=== PATIENT | female | born 1995 | race African-American/Black ===

== ENCOUNTER 2019-04-29 23:05 | Emergency (ER) | payer MEDICAID ==
[~2019-04-29] VITALS: Ht 157.5 cm; Wt 86.0 kg
[2019-04-30 00:45] LABS: HEMATOCRIT. 35.8 % (36.0-48.0); HEMOGLOBIN. 12.3 g/dL (12.0-16.0); MEAN CORPUSCULAR HEMOGLOBIN 30.9 pg (28.0-32.0); MEAN CORPUSCULAR VOLUME 90.4 fL (81.0-99.0); MEAN PLATELET VOLUME 7.2 fl (7.4-10.4); PLATELET 400 x1000/uL (130-400); RED BLOOD CELL COUNT 3.96 mill/uL (4.2-5.4)
[2019-04-30 00:47] LABS: CHLORIDE 102 mEq/L (98-107)
[2019-04-30 00:52] LABS: PARTIAL THROMBOPLASTIN TIME 32.5 sec (23.4-31.0); PROTHROMBIN TIME 10.5 sec (9.6-11.0)
[2019-04-30 00:56] LABS: ETHANOL BLOOD < 10 mg/dL
[2019-04-30 01:03] LABS: HCG SCREEN NEGATIVE
[2019-04-30 02:16] LABS: CLARITY URINE CLEAR (CLEAR); COLOR URINE YELLOW (YELLOW); KETONES URINE NEGATIVE (NEGATIVE); LEUKOCYTE ESTERASE URINE 2+ (NEGATIVE); NITRITE URINE NEGATIVE (NEGATIVE); OCCULT BLOOD URINE TRACE (NEGATIVE); PH URINE 6.5 (4.5-8.0); PROTEIN URINE NEGATIVE (NEGATIVE)
[2019-04-30 02:22] LABS: *AMPHETAMINES SCREEN URINE NEGATIVE (NEGATIVE); *BARBITURATES SCREEN URINE NEGATIVE (NEGATIVE)
[2019-04-30 02:23] LABS: *BENZODIAZEPINES SCREEN URINE NEGATIVE (NEGATIVE); CANNABINOID URINE SCREEN NEGATIVE (NEGATIVE); METHADONE URINE SCREEN NEGATIVE (NEGATIVE); PHENCYCLIDINE URINE SCREEN NEGATIVE (NEGATIVE)
[2019-04-30 02:26] LABS: *COCAINE SCREEN URINE PRESUMTIVE POSITIVE (NEGATIVE)
[2019-04-30 02:30] VITALS: BP 122/81
[2019-04-30 03:59] LABS: PLATELET ESTIMATE NORMAL
[2019-05-03 09:10] LABS: OPIATES URINE SCREEN NEGATIVE (NEGATIVE)
== END 2019-04-30 02:35 | disposition home or self-care (01) ==
LOC: ER 23:05
DX: S40.022A Contusion of left upper arm, initial encounter (principal); S70.11XA Contusion of right thigh, initial encounter; R58 Hemorrhage, not elsewhere classified; X58.XXXA Exposure to other specified factors, initial encounter; Y93.89 Activity, other specified; Y92.89 Other specified places as the place of occurrence of the external cause; Y99.8 Other external cause status
CPT/HCPCS: 36415; 80053; 80305; 80320; 81003; 84703; 85025; 99283; G0480